=== PATIENT | male | born 1985 | race Caucasian/White ===

== ENCOUNTER 2018-10-07 00:07 | Emergency (ER) | payer BC ==
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
[2018-10-07] MEDS ORDERED: Ibuprofen 800 MG Tab PO ONE (01:15)
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
== END 2018-10-07 02:19 | disposition home or self-care (01) ==
LOC: JP.ED 00:07
DX: S06.0X0A Concussion without loss of consciousness, initial encounter (principal); S02.32XA Fracture of orbital floor, left side, initial encounter for closed fracture; S62.022A Displaced fracture of middle third of navicular [scaphoid] bone of left wrist, initial encounter for closed fracture; Y04.0XXA Assault by unarmed brawl or fight, initial encounter
CPT/HCPCS: 29125; 70450; 70486; 73110; 99284; A9270